=== PATIENT | female | born 1980 | race Caucasian/White ===

== ENCOUNTER 2020-10-06 18:54 | Emergency (ER) | payer OTHER, MEDICAID ==
[~2020-10-06] VITALS: Ht 157.5 cm; Wt 54.4 kg
[~2020-10-06 18:54] MED LIST: BENADRYL25 MG PO; CIPRO500 MG PO; ERYTHROMYCIN E3.5 G3 OPHTHALMIC; FLAGYL500 MG PO; HYDROCODONE-AP1 EAC6 PO; IBUPROFEN 800800 M1 PO; KEFLEX500 MG PO; NORCO 5-325 TA1 EACH PO; PREDNISONE 10 M10 M1 PO; PREDNISONE 20 M20 MG PO; TRIAMCINOLONE A80 G2 TOP; TRINATE TABLET1 TAB PO; ZANTAC 7575 MG PO; ZOFRAN ODT4 MG PO
[2020-10-06 19:27] LABS: URINE BILIRUBIN NEGATIVE (Negative); URINE BLOOD 3+ (Negative); URINE CLARITY CLEAR; URINE COLOR YELLOW; URINE GLUCOSE-RANDOM NEGATIVE (Negative); URINE KETONES NEGATIVE (Negative); URINE LEUKOCYTES-REFLEX NEGATIVE (Negative); URINE NITRITE-REFLEX NEGATIVE (Negative); URINE PROTEIN NEGATIVE (Negative); URINE SPECIFIC GRAVITY 1.015 (1.005-1.030); URINE UROBILINOGEN 0.2 E.U./dl (0.2-1.0)
[2020-10-06 19:29] LABS: HEMATOCRIT 42.5 % (37.0-47.0); HEMOGLOBIN 14.4 gm/dL (12.0-15.0); MCHC 33.9 g/dL (28.0-37.0); MCV 88.6 fL (80.0-100.0); MPV 6.1 fl. (7.2-11.1); NUCLEATED RBCS 0 /100WBC; PLATELET COUNT* 348 thou/uL (150-400); RBC 4.79 mil/uL (4.20-5.00); RDW-CV 12.7 % (10.5-14.5); WBC 5.6 thou/uL (4.0-11.0)
[2020-10-06 19:35] LABS: BACTERIA-REFLEX 1-9 Few /HPF (None Seen); CASTS None Seen /LPF (None Seen); CRYSTALS None Seen /LPF (None Seen); MUCUS 4-6 Moderate strn/LPF (None Seen); SQUAMOUS 4-10 Moderate /LPF (0-3); URINE RBC 0-2 Rare /HPF (0-2); URINE WBC-REFLEX None Seen /HPF (0-5)
[2020-10-06 19:39] LABS: CALCIUM 8.7 mg/dL (8.5-10.1); CREATININE 0.7 mg/dL (0.6-1.3); POTASSIUM 3.7 mmol/L (3.5-5.1)
[2020-10-06 19:45] LABS: ALBUMIN 3.2 g/dL (3.4-5.0); TOTAL BILIRUBIN 0.2 mg/dL (<0.1-1.0); TOTAL PROTEIN 7.4 g/dL (6.4-8.2)
[2020-10-06 20:21] LABS: ABSOLUTE BASOPHILS 0.1 thou/uL (0.0-0.2); ABSOLUTE EOSINOPHILS 0.2 thou/uL (0.0-0.7); ABSOLUTE LYMPHOCYTES 2.3 thou/uL (0.8-5.3); ABSOLUTE MONOCYTES 0.4 thou/uL (0.0-1.2); ABSOLUTE NEUTROPHILS 2.6 thou/uL (1.6-8.1); ATYPICAL LYMPHS 4 %
[2020-10-06 20:22] LABS: PLATELET ESTIMATE ADEQUATE
[2020-10-06] MEDS ORDERED: BENTYL 10 MG CA10 M1 PO (20:53)
[2020-10-06] MEDS ORDERED: OMEPRAZOLE 20 M20 M1 PO (20:53)
[2020-10-06] MEDS ORDERED: CARAFATE1 GM/10 ML PO (20:53)
[2020-10-06 21:20] VITALS: BP 145/94
== END 2020-10-06 21:21 | disposition home or self-care (01) ==
LOC: M.ERS 18:54
PROVIDERS: Nurse Practitioner Family
DX: K29.70 Gastritis, unspecified, without bleeding (principal); Z88.1 Allergy status to other antibiotic agents